=== PATIENT | male | born 1970 | race Caucasian/White ===

== ENCOUNTER 2019-03-29 09:37 | Day surgery (SDC) | payer BC ==
[~2019-03-29] VITALS: Ht 172.7 cm; Wt 87.3 kg
[2019-03-29] MEDS ORDERED: GABA300 PO (10:13)
[2019-03-29] MEDS ORDERED: Cymbalta20 MG (10:14)
[2019-03-29] MEDS ORDERED: BENADRYL25 MG PO (10:15)
[2019-03-29] MEDS ORDERED: LO-DOSE ASPIRIN81 MG (10:15)
[2019-04-14] MEDS ORDERED: DULO60 PO (07:31)
[2019-04-14] MEDS ORDERED: Aspir-Trin325 MG PO (07:32)
== END 2019-03-29 11:40 | disposition home or self-care (01) ==
LOC: ORSCSDS 09:37
PROVIDERS: Internal Medicine Gastroenterology
PROC: 0DBM8ZX Excision of Descending Colon, Via Natural or Artificial Opening Endoscopic, Diagnostic (ICD-10-PCS; principal; 2019-03-29 11:00)
PROC: 0DBK8ZX Excision of Ascending Colon, Via Natural or Artificial Opening Endoscopic, Diagnostic (ICD-10-PCS; principal; 2019-03-29 11:00)
PROC: 0DBN8ZX Excision of Sigmoid Colon, Via Natural or Artificial Opening Endoscopic, Diagnostic (ICD-10-PCS; principal; 2019-03-29 11:00)
DX: R10.9 Unspecified abdominal pain (principal); D12.2 Benign neoplasm of ascending colon; D12.4 Benign neoplasm of descending colon; K63.5 Polyp of colon; K64.8 Other hemorrhoids; D64.9 Anemia, unspecified; Z80.0 Family history of malignant neoplasm of digestive organs; F32.9 Major depressive disorder, single episode, unspecified; E66.9 Obesity, unspecified; Z68.30 Body mass index [BMI] 30.0-30.9, adult; Z79.82 Long term (current) use of aspirin; Z79.899 Other long term (current) drug therapy
CPT/HCPCS: 88305; J2704; J7120

== ENCOUNTER 2019-04-25 10:04 | Day surgery (SDC) | payer BC ==
[~2019-04-25] VITALS: Ht 175.3 cm; Wt 90.5 kg
[~2019-04-25 10:04] MED LIST: Aspir-Trin325 MG PO; BENADRYL25 MG PO; Cymbalta20 MG; DULO60 PO; GABA300 PO; LO-DOSE ASPIRIN81 MG
== END 2019-04-25 11:43 | disposition home or self-care (01) ==
LOC: ORSCSDS 10:04
DX: D50.9 Iron deficiency anemia, unspecified (principal); R10.9 Unspecified abdominal pain; K29.80 Duodenitis without bleeding; K29.70 Gastritis, unspecified, without bleeding; G47.33 Obstructive sleep apnea (adult) (pediatric); Z79.899 Other long term (current) drug therapy; Z79.82 Long term (current) use of aspirin
CPT/HCPCS: 88305; 88342; J2250; J2704; J7120

== ENCOUNTER → 2019-09-08 | Outpatient (CLI) | payer BC ==
[2019-09-08 18:25] LABS: Campylobacter Sp Not Detected (NOT DETECT); Plesiomonas Shigelloides Not Detected (NOT DETECT); Salmonella Sp Not Detected (NOT DETECT); Vibrio Sp Not Detected (NOT DETECT); Yersinia Enterocolitica Not Detected (NOT DETECT)
[2019-09-08 18:26] LABS: Adenovirus F 40/41 Not Detected (NOT DETECT); Astrovirus Not Detected (NOT DETECT); Cryptosporidium Not Detected (NOT DETECT); Cyclospora Cayetanensis Not Detected (NOT DETECT); E. Coli O157 Not Detected (NOT DETECT); Entamoeba Histolytica Not Detected (NOT DETECT); Enteroaggregative E. coli-EAEC Detected (NOT DETECT); Enteropathogenic E. coli-EPEC Not Detected (NOT DETECT); Enterotoxigenic E. coli-ETEC Not Detected (NOT DETECT); Giardia Lamblia Not Detected (NOT DETECT); Norovirus GI/GII Not Detected (NOT DETECT); Rotavirus A Not Detected (NOT DETECT); Sapovirus Not Detected (NOT DETECT); Shiga Toxin-prod E. coli-STEC Not Detected (NOT DETECT); Shigella/Enteroin E. coli-EIEC Not Detected (NOT DETECT); Vibrio Cholerae Not Detected (NOT DETECT)
== END | disposition home or self-care (01) ==
LOC: OLS 11:02 → LAB SHORT 11:02 → LAB FUT 09-06 19:45
PROVIDERS: Nurse Practitioner Family
DX: K29.80 Duodenitis without bleeding (principal); K59.00 Constipation, unspecified; D50.9 Iron deficiency anemia, unspecified; R10.9 Unspecified abdominal pain
CPT/HCPCS: 0097U